=== PATIENT | female | born 1985 | race Caucasian/White ===

== ENCOUNTER 2019-05-19 08:28 | Emergency (ER) | payer SELFPAY ==
[2019-05-19] MEDS ORDERED: Meclizine HCl 25 MG TAB ONE (09:10)
== END 2019-05-19 09:15 | disposition home or self-care (01) ==
LOC: NAV ERS 08:28
DX: H81.391 Other peripheral vertigo, right ear (principal); R59.0 Localized enlarged lymph nodes
CPT/HCPCS: 99283; J8597